=== PATIENT | male | born 1985 | race Caucasian/White ===

== ENCOUNTER 2016-03-09 22:17 | Emergency (ER) | payer BC ==
[~2016-03-09] VITALS: Ht 182.9 cm; Wt 71.2 kg
[2016-03-09 22:18] VITALS: BP 115/58
[2016-03-09] MEDS ORDERED: Solu-MEDROL 125mg Inj IVP ONE (22:45)
[2016-03-10] MEDS ORDERED: EPIPEN 2-P0.3 MG/0.3 IM (00:03)
[2016-03-10] MEDS ORDERED: PREDNISONE20 MG ORAL (00:03)
--- NOTE | 2016-03-10 00:09 | Emergency Room Report ---
History of Present Illness General Chief Complaint: General Complaint Source: Patient Present Illness HPI 31 YO M SASHA with alleged anaphylactic shock from food allergy. Patient made quinoa with vegetables at home - hour later was playing basketball, broke out it hives, had trouble breathing/SOB, throat tightness, called 911. EMS states patent was "shocky", had low BP. Was given IM epinephrine with immediate improvement in symptoms. Rash resolved. Patient feels much better currently, asymptomatic. Only known allergy is peanuts. Allergies: Coded Allergies: NUT - UNSPECIFIED (Verified Allergy, Unknown, 03/09/16) PEANUT (Verified Allergy, Unknown, 03/09/16) Patient History Past Medical History: none Past Surgical History: none Pertinent Family History: none Social History: Denies: alcohol use, drug use, smoking Immunizations: UTD Reviewed Nursing Documentation: PMH: Agreed, PSxH: Agreed Nursing Documentation-PMH Past Medical History: No History, Except For Hx Asthma: Yes Review of Systems All Other Systems: negative except mentioned in HPI Physical Exam Vital Signs Date Time Temp Pulse Resp B/P Pulse Ox O2 Delivery O2 Flow Rate FiO2 03/09/16 22:15 97.3 66 16 103/59 97 Room Air Sp02 EP Interpretation: reviewed, normal General Appearance: normal inspection, well appearing, no apparent distress, alert, GCS 15, non-toxic Head: normocephalic, atraumatic Eyes: bilateral eye EOMI, bilateral eye PERRL ENT: normal ENT inspection, hearing grossly normal, normal pharynx, no angioedema, normal voice, TMs + canals normal, uvula midline, moist mucus membranes Neck: normal inspection, full range of motion, supple, thyroid normal, no meningismus, no bony tend Respiratory: normal inspection, lungs clear, normal breath sounds, no rhonchi, no respiratory distress, no retraction, no accessory muscle use, no wheezing Cardiovascular #1: regular rate, rhythm, no edema Gastrointestinal: normal inspection, normal bowel sounds, non tender, soft, no guarding, no hernia Genitourinary: no CVA tenderness Musculoskeletal: normal inspection, back normal, normal range of motion, Alexandra' s Sign negative Neurologic: normal inspection, alert, oriented x3, responsive, assistant center director III-XII nml as tested, motor strength/tone normal, speech normal Psychiatric: normal inspection, judgement/insight normal, mood/affect normal Skin: normal inspection, normal color, no rash Medical Decision Making Diagnostic Impression: Primary Impression: Anaphylaxis due to food Qualified Codes: T78.00XA - Anaphylactic reaction due to unspecified food, initial encounter ER Course 31 YOM with likely anaphylaxis d/t food. VSS. Afebrile. Asymptomatic here. Was give IM solumedrol without biphasic return of symptoms Observed for multiple hours in the ED and remained stable DC with prednisone, Epi Pen (has benadryl at home) DC home Last Vital Signs Date Time Temp Pulse Resp B/P Pulse Ox O2 Delivery O2 Flow Rate FiO2 03/09/16 22:18 97.3 97 18 115/58 100 Room Air Status: improved Disposition: HOME, SELF-CARE Condition: Improved Scripts Epinephrine (Epipen 2-Imer) 0.3 Mg/0.3 Ml Auto.injct 0.3 MG IM ONCE for 1 Day, #2 EA Prov: ARTUR BACK M.D. 03/10/16 Prednisone* (PREDNISONE*) 20 Mg Tablet 20 MG ORAL BID for 3 Days, #6 TAB Prov: ARTUR BACK M.D. 03/10/16 Patient Instructions: Anaphylactic Reaction, [id number] Additional Instructions: - Take prednisone 2x a day for next 3 days - If rash recurs, if you have SOB, throat tightness, immediately take benadryl and use Epi pen and call 911 or return to nearest ER ARTUR BACK M.D. Mar 10, 2016 00:09
[2016-03-10 00:18] VITALS: BP 112/62
== END 2016-03-10 00:20 | disposition home or self-care (01) ==
LOC: EDBD 22:17 → EMR 22:40
DX: T78.04XA Anaphylactic reaction due to fruits and vegetables, initial encounter (principal); J45.909 Unspecified asthma, uncomplicated; Z91.010 Allergy to peanuts; Z91.018 Allergy to other foods
CPT/HCPCS: 96374; 99284; J2930